=== PATIENT | female | born 2005 | race Hispanic/Latino ===

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

== ENCOUNTER 2024-01-17 16:37 | Emergency (ER) | payer SELFPAY ==
[~2024-01-17] VITALS: Ht 152.4 cm; Wt 52.2 kg
[2024-01-17 17:28] LABS: APPEARANCE,URINE SL CLOUDY (CLEAR); BILIRUBIN,URINE SMALL mg/dL (NEGATIVE); COLOR,URINE YELLOW (YELLOW); GLUCOSE, URINE (UA) NEGATIVE (NEGATIVE); KETONES,URINE NEGATIVE (NEGATIVE); LEUKOCYTE ESTERASE ,URINE TRACE Leu/uL (NEGATIVE); NITRATE,URINE NEGATIVE (NEGATIVE); OCCULT BLOOD,URINE MODERATE (NEGATIVE); PROTEIN,URINE 30 mg/dL (NEGATIVE)
[2024-01-17 17:33] LABS: HCG,QUALITATIVE URINE NEGATIVE (NEGATIVE)
[2024-01-17 17:35] LABS: HEMATOCRIT 37.3 % (36-48); MEAN CORPUSCULAR HEMOGLOBIN 27.4 pg (27.0-33.0); MEAN CORPUSCULAR HGB CONC 32.4 g/dL (32.0-36.0); MEAN CORPUSCULAR VOLUME 84.4 fL (80-100); RED BLOOD CELL COUNT(AUTO) 4.42 MIL/uL (4.00-5.50); RED CELL DISTRIBUTION WIDTH 13.7 % (11.0-15.5); WHITE BLOOD COUNT (AUTO) 8.5 K/uL (4.8-10.8)
[2024-01-17 17:56] LABS: CREATININE 0.6 mg/dL (0.5-1.0); POTASSIUM 3.9 mmol/L (3.5-5.1)
[2024-01-17 18:29] LABS: ADD UA MICROSCOPIC YES
[2024-01-17 18:30] LABS: BACTERIA,URINE FEW /HPF (None Seen); MUCUS,URINE FEW LPF (None Seen); OTHER CASTS, URINE 1 /LPF (None Seen); SQUAMOUS EPITHELIAL CELL,UR FEW /HPF (0-2)
[2024-01-17] MEDS ORDERED: IBUP-2070 PO (19:21)
[2024-01-17 19:53] VITALS: BP 100/67; PULSE 70; RESP 16; TEMP 98.3; O2SAT 100
== END 2024-01-17 19:54 | disposition home or self-care (01) ==
LOC: EDH 16:37
DX: R55 Syncope and collapse (principal); N94.6 Dysmenorrhea, unspecified
CPT/HCPCS: 36415; 80048; 81001; 81025; 85027; 87086

== ENCOUNTER 2024-01-28 15:58 | Emergency (ER) | payer SELFPAY ==
[~2024-01-28] VITALS: Ht 152.4 cm; Wt 52.2 kg
[~2024-01-28 15:58] MED LIST: IBUP-2070 PO
[2024-01-28 16:38] LABS: RAPID GROUP A STREP negative (NEGATIVE)
[2024-01-28 16:46] LABS: SARS-CoV-2, RNA, NAAT NEGATIVE SARS CoV-2 (NEGATIVE)
[2024-01-28 16:52] LABS: BILIRUBIN,URINE NEGATIVE (NEGATIVE); COLOR,URINE YELLOW (YELLOW); GLUCOSE, URINE (UA) NEGATIVE (NEGATIVE); KETONES,URINE NEGATIVE (NEGATIVE); LEUKOCYTE ESTERASE ,URINE 25 Leu/uL (NEGATIVE); NITRATE,URINE NEGATIVE (NEGATIVE); OCCULT BLOOD,URINE NEGATIVE (NEGATIVE); PH,URINE 7.5 (5.0-8.0); PROTEIN,URINE 20 mg/dL (NEGATIVE); UROBILINOGEN,URINE 0.2 mg/dL (0.2-1.0)
[2024-01-28 16:53] LABS: ADD UA MICROSCOPIC YES
[2024-01-28 16:54] LABS: APPEARANCE,URINE HAZY (CLEAR)
[2024-01-28 16:55] LABS: INFLUENZA TYPE A Negative For Type A (NEGATIVE); INFLUENZA TYPE B Negative For Type B (NEGATIVE)
[2024-01-28 16:56] LABS: BACTERIA,URINE FEW /HPF (None Seen); MUCUS,URINE FEW LPF (None Seen); SQUAMOUS EPITHELIAL CELL,UR MOD /HPF (0-2)
[2024-01-28] MEDS ORDERED: CEPH500B PO (17:50)
[2024-01-28 17:57] VITALS: BP 119/76; PULSE 65; RESP 20; TEMP 98.9; O2SAT 99
== END 2024-01-28 18:00 | disposition home or self-care (01) ==
LOC: EDH 15:58
DX: N39.0 Urinary tract infection, site not specified (principal); Z20.822 Contact with and (suspected) exposure to COVID-19; Z79.899 Other long term (current) drug therapy
CPT/HCPCS: 81001; 87086; 87186; 87635; 87804; 87880